=== PATIENT | female | born 1960 | race Caucasian/White ===

== ENCOUNTER 2020-07-14 12:49 | Emergency (ER) | payer OTHER ==
[2020-07-15 14:48] LABS: SARS-CoV-2 MS2 Positive; SARS-CoV-2 N Gene Negative; SARS-CoV-2 S Gene Negative; SARS-CoV-2 by NAA Not Detected (NotDetected); SARS-CoV-2 orf1ab Negative
== END 2020-07-14 13:15 | disposition home or self-care (01) ==
LOC: ERS 12:49
DX: R50.9 Fever, unspecified (principal); Z20.828 Contact with and (suspected) exposure to other viral communicable diseases
CPT/HCPCS: 87635; 99283; U0003

== ENCOUNTER 2021-07-28 12:54 | Outpatient (CLI) | payer OTHER ==
[2021-07-28 15:27] LABS: Hemoglobin 13.4 g/dL (12.0-15.5); Mean Corpuscular HGB CONC 32.4 g/dL (32.0-36.0); Mean Corpuscular Hemoglobin 29.1 pg (27.0-33.0); Mean Platelet Volume 9.7 fl (7.4-10.4); Platelet Count 336 10x3/uL (150-450); RBC Distribution Width 13.8 % (11.5-14.5); White Blood Cell (WBC) Count 3.9 10x3/uL (3.5-10.5)
[2021-07-28 15:59] LABS: Anion Gap 16 mmol/L (10-20); BUN (Urea Nitrogen) 16 mg/dL (9.8-20.1); Calc. Creatinine Clearance 0 mL/min (70-130); Calcium 9.3 mg/dL (7.8-10.44); Carbon Dioxide 21 mmol/L (22-29); Chloride 104 mmol/L (98-107); Glucose 91 mg/dL (70-105); Potassium 4.4 mmol/L (3.5-5.1); Sodium 137 mmol/L (136-145)
[2021-07-29 12:05] LABS: SARS-CoV-2 PCR by NAA Not Detected (NotDetected)
== END 2021-07-28 12:55 | disposition home or self-care (01) ==
LOC: LABBT 12:54
PROVIDERS: ATTEND Urology
DX: Z01.818 Encounter for other preprocedural examination (principal); N39.3 Stress incontinence (female) (male); Z20.822 Contact with and (suspected) exposure to COVID-19
CPT/HCPCS: 80048; 85027; 93005; 93010; U0003; U0005

== ENCOUNTER 2021-08-02 06:34 | Day surgery (SDC) | payer OTHER ==
[2021-08-01 10:45] VITALS: BMI 29.2
[2021-08-02] MEDS ORDERED: Fentanyl 100 MCG/2 ML VIAL ONE (06:51)
[2021-08-02] MEDS ORDERED: Bupivacaine 0.25% HCL 30 ML VIAL ONE (06:52)
[2021-08-02] MEDS ORDERED: ceFAZolin 2 GM/DEX 5% 100 ML BAG ONE (06:56)
[2021-08-02] MEDS ORDERED: Ondansetron PF 4 MG/2 ML Vial ONE (07:56)
[2021-08-02] MEDS ORDERED: Dexamethasone 20 MG/5 ML VIAL ONE (07:56)
[2021-08-02] MEDS ORDERED: PROPOFOL 200 MG/20 ML VIAL ONE (07:56)
[2021-08-02] MEDS ORDERED: Ketorolac Tromethamine 30 MG/ML VIAL ONE (10:09)
== END 2021-08-02 13:25 | disposition home or self-care (01) ==
LOC: SDC 06:34
PROVIDERS: ATTEND Urology
PROC: 0TSD0ZZ Reposition Urethra, Open Approach (ICD-10-PCS; principal; 2021-08-02)
DX: N39.3 Stress incontinence (female) (male) (principal); K59.00 Constipation, unspecified; Z98.890 Other specified postprocedural states; Z90.710 Acquired absence of both cervix and uterus; Z85.048 Personal history of other malignant neoplasm of rectum, rectosigmoid junction, and anus; Z93.3 Colostomy status; Z79.899 Other long term (current) drug therapy
CPT/HCPCS: C1781; J1100; J1885; J2405; J2704; J3010; S0020

== ENCOUNTER 2022-06-26 17:30 | Outpatient (CLI) | payer OTHER | END 2022-06-26 17:31 | disposition home or self-care (01) | LOC: SLEEPLAB 17:30 | PROVIDERS: ATTEND Internal Medicine Pulmonary Disease | DX: G47.33 Obstructive sleep apnea (adult) (pediatric) (principal); R53.83 Other fatigue; R06.83 Snoring; R51.9 Headache, unspecified; G47.10 Hypersomnia, unspecified | CPT/HCPCS: 95806 ==

== ENCOUNTER 2024-02-07 12:57 | Outpatient (CLI) | payer OTHER | END 2024-02-07 12:58 | disposition home or self-care (01) | LOC: CT 12:57 → BICCT 12:58 | PROVIDERS: ATTEND Urology | DX: R31.0 Gross hematuria (principal); N21.8 Other lower urinary tract calculus; N32.89 Other specified disorders of bladder; N13.4 Hydroureter; K76.89 Other specified diseases of liver; K80.20 Calculus of gallbladder without cholecystitis without obstruction; K44.9 Diaphragmatic hernia without obstruction or gangrene; Z93.3 Colostomy status; Z90.49 Acquired absence of other specified parts of digestive tract | CPT/HCPCS: 74178; 82565 ==